=== PATIENT | female | born 1995 | race Caucasian/White ===

== ENCOUNTER 2020-01-20 01:35 | Outpatient (CLI) | payer BC, SELFPAY ==
[2020-01-20 16:37] LABS: Vitamin D 25 Total 25.5 ng/ml (30-100)
[2020-01-20 16:58] LABS: ALT 22 U/L (14-59); AST 12 U/L (15-37); Albumin 4.4 g/dL (3.4-5.0); Alkaline Phosphatase 93 U/L (46-116); Anion Gap 11.7 mmol/L (3-11); BUN 17 mg/dL (7-18); Bilirubin, Total 0.4 mg/dL (0.2-1.0); CO2 24.3 mmol/L (21.0-32.0); CREATININE 0.86 mg/dL (0.55-1.02); Calcium 10.5 mg/dL (8.5-10.1); Calculated LDL 141 mg/dL (<100); Chloride 105 mmol/L (98-107); Cholesterol 222 mg/dL (<200); Glucose 82 mg/dL (74-106); HDL Cholesterol 62 mg/dL (40-60); Potassium 4.1 mmol/L (3.5-5.1); Sodium 141 mmol/L (136-145); TSH (W/Ref FT4) 3.61 uIU/mL (0.36-3.74); Total Protein 7.5 g/dL (6.4-8.2); Triglyceride 95 mg/dL (<150)
== END 2020-01-20 01:55 ==
DX: F32.9 Major depressive disorder, single episode, unspecified (principal); G47.00 Insomnia, unspecified; R63.8 Other symptoms and signs concerning food and fluid intake; Z00.00 Encounter for general adult medical examination without abnormal findings; Z13.220 Encounter for screening for lipoid disorders; E03.9 Hypothyroidism, unspecified; I10 Essential (primary) hypertension
CPT/HCPCS: 36415; 80053; 80061; 82306; 84443

== ENCOUNTER 2020-01-31 13:23 | Outpatient (REF) | payer BC, SELFPAY ==
--- NOTE | 2020-01-31 13:00 | PAPFT_PTH ---
PATIENT: Morenita Carcamo LOC: [facility] U#:[id number] AGE/SX: 24/F ROOM: RE01/31/[address]: KIMBERLY Goddard : 1995 BED: DIS: 01/31/2020 SPEC #: [id number] RECD: 01/31/20 15:29 STATUS: LAURA REGino #: [id number] ABRAN: 01/31/20 13:[address]: Dora Marks DEPT: [facility] Cytology RECD BY: Za Martinez ENTERED: 01/31/20 15:30 SP TYPE: PAPFT OT DR: Aury Lewis APRN Tissues: 1 - CX/ENDOCX FOR PAP SMEARS Procedures: PAP THIN PREP/UVM Screening Comments: [id number]
[2020-02-02 14:28] LABS: Chlamydia Result Negative (Negative); GC Result Negative (Negative)
== END 2020-01-31 13:43 ==
LOC: LBN 13:23
PROVIDERS: Visit Provider Nurse Practitioner Family
DX: Z79.4 Long term (current) use of insulin (principal); Z11.3 Encounter for screening for infections with a predominantly sexual mode of transmission
CPT/HCPCS: 87491; 87591; 88142

== ENCOUNTER 2020-08-23 14:35 | Emergency (ER) | payer BC, SELFPAY ==
[2020-08-23 14:39] VITALS: BP 136/103; PULSE 90; RESP 20; TEMP 36.7; O2SAT 94
--- NOTE | 2020-08-23 15:21 | W.ED.GENAD ---
Discharge Plan Disposition Patient Disposition: HOME Condition: Good Discharge Details Clinical Impression: Lower back pain Primary Care Provider: Aury Lewis ED Provider: Za Baig Home Meds and New Rx's Prescriptions: New cyclobenzaprine 10 mg tablet 10 mg PO TID PRNQty: 14 RF: 0 lidocaine [Lidoderm] 5 % adhesive patch,medicated 1 patch topical DAILY Qty: 15 RF: 0 No Action venlafaxine 37.5 mg capsule,extended release 24hr 37.5 mg PO DAILY Qty: 90 RF: 2 cholecalciferol (vitamin D3) 50 mcg (2,000 unit) capsule 50 mcg PO DAILY Qty: 90 RF: 3 methylprednisolone 4 mg tablets,dose pack See Rx Instructions PO PER PKG DIR RF: 0 Mirena 1 EACH intrauterine device 1 ea Intrauterine ONCE Qty: 1 RF: 0 Discharge Instructions Instructions: Sciatica (ED), Back Pain (ED) Additional Instructions: I recommend stretching your hip several times daily Take 1 g of Tylenol every 8 hours Once the Medrol Dosepak is completed you may take ibuprofen 600 mg every 8 hours with food and alternate with the Tylenol Take the Flexeril for musculoskeletal pain, this will make you drowsy, do not take if you have to drive in 8 hours Lidoderm patches, 12 hours on, 12 hours off Please follow-up with your primary care physician in 2 to 3 days for reevaluation return earlier should you have changes in bowel or bladder, strength or sensation changes, fever or chills, or with any new or worsening complaints recommend outpatient physical therapy at your PCP's discretion Stand Alone Forms: Work Release Discharge Data Discharge Date/Time-TO BE ENTERED AT DEPARTURE: 08/23/20 16:12 Medical Decision Making Patient has no history of IV drug abuse, she is afebrile and nontoxic, my suspicion for discitis or epidural abscess is quite low given her clinical exam picture and findings Suspect she does have sciatica, she has positive straight leg raise with tenderness over sciatic notch Patient is feeling symptomatically improved, she is discharged home in stable condition with stable vitals Medrol Dosepak supplied by another provider No findings consistent with cauda equina syndrome Patient given low threshold to return with new or worsening complaints instructed to follow-up with her primary care physician in 48 hours Differential Diagnosis Differential Diagnosis: Lumbar radiculopathy, sciatica, psoas muscle strain, discitis Medical Records Medical records reviewed: Yes I reviewed the patient's medical records. Lab Data Lab results reviewed: Yes I reviewed the patient's lab results. HPI This 25-year-old female presents with right posterior leg pain. She said the pain for the past 4 days. She states she was seen at [place] several days ago and diagnosed with sciatica and started on Medrol. She states she has been taking the Medrol without relief in her pain. She denies any strength or sensation changes to her extremities. She denies history of IV drug abuse. She states that radiates down her leg. She denies any chance of . She denies any associated abdominal pain. She states the pain is exacerbated with lifting her leg when she is supine. She states the pain radiates from her buttocks into her toes. Denies changes in bowel or bladder, history of IV drug abuse, saddle anesthesia, trauma. She describes it as a sharp shooting pain. She denies having prior history of similar pain. General Date/Time Provider Initiated Documentation: 08/23/20 14:43. Related Data Home Medications Medication Instructions Recorded Confirmed levonorgestrel [Mirena] 1 ea INTRAUTERINE ONCE #1 implant 05/01/17 08/23/20 cholecalciferol (vitamin D3) 50 50 mcg PO DAILY #90 cap 01/24/20 08/23/20 mcg (2,000 unit) capsule venlafaxine 37.5 mg 37.5 mg PO DAILY #90 cap 01/24/20 08/23/20 capsule,extended release 24 hr cyclobenzaprine 10 mg PO TID PRN #14 tab 08/23/20 lidocaine [Lidoderm] 1 patch TOPICAL DAILY #15 ea 08/23/20 methylprednisolone 4 mg tablets in See Rx Instructions PO PER PKG DIR 08/23/20 08/23/20 a dose pack Previous Rx's Medication Instructions Recorded levonorgestrel [Mirena] 1 ea INTRAUTERINE ONCE #1 implant 05/01/17 cholecalciferol (vitamin D3) 50 50 mcg PO DAILY #90 cap 01/24/20 mcg (2,000 unit) capsule venlafaxine 37.5 mg 37.5 mg PO DAILY #90 cap 01/24/20 capsule,extended release 24 hr cyclobenzaprine 10 mg PO TID PRN #14 tab 08/23/20 lidocaine [Lidoderm] 1 patch TOPICAL DAILY #15 ea 08/23/20 Allergies Allergy/AdvReac Type Severity Reaction Status Date / Time amoxicillin Allergy Intermediate Rash Verified 08/23/20 14:44 sertraline AdvReac Severe anxiety Verified 08/23/20 14:44 General Stated Complaint: Nk/Back Pain MAURO: 3 Review of Systems Narrative: Review of systems negative x7 aside from where indicated in HPI [facility] Medical History Closed fracture of phalanx of finger L PINKY Depression facial acne Hearing loss d/t noise Perceived by patient Increased body mass index (BMI) Surgical History GANGLION CYST REMOVAL 12/06/15 [facility] Tooth extraction ORAL SURGERY - WISDOM TOOTH EXTRACTION X 4 Family History Father Diabetes Hyperlipidemia Grandmother Diabetes Breast cancer Grandmother Breast cancer Grandfather Diabetes Grandfather No problems noted. Mother No problems noted. Brother No problems noted. PATERNAL HISTORY Thin blood Social History Smoking/Tobacco Use Status: Current-Occasional Tobacco Type: cigars Quit status: not considering quitting Smoking risk assessment performed?: Yes Alcohol Intake: current Alcohol Intake frequency: a few times a month Alcohol type: wine and hard liquor Drug use: Daily Substance use type: marijuana Counseling given: No Counseling provided: none Caregiver/Support person: No Housing: apartment Do you need help understanding health information?: Rarely Pets and animals: Yes (turtle.fish beta) Pets and animals: cat(s) Sexually active: Yes Do you think of yourself as: straight/heterosexual Current gender identity: female How often do you talk on the phone with friends or family?: three or more times per week How often do you get together with friends or relatives?: once per week How often do you attend yazidism or latter-day services?: decline to answer Panel score (0-1 are the most socially isolated patients): 1 NHANES result reviewed/action taken: No What type of physical activity do you participate in: walking Duration: 45-60 minutes/day Frequency: 3-4 times per week Seatbelt use: sometimes Helmet use: No Drive intox or ride w/intox trailer tank truck driver: No Female Reproductive History Menstrual control method: progestin IUCD Exam Const General: cooperative, well developed and acute distress Orientation: alert and oriented x3 Eyes General: appearance normal, both eyes and all related structures Pupils: PERRL Chest Chest: normal inspection of the chest Resp Effort & Inspection: normal respiratory effort Cardio Rate: regular rate Rhythm: regular rhythm GI Inspection: normal to inspection Course Vital Signs Vital signs: Vital Signs Temperature 36.7 C 08/23/20 14:39 Pulse 90 08/23/20 14:39 Respiratory Rate 20 08/23/20 14:39 Blood Pressure 136/103 H 08/23/20 14:39 Pulse Oximetry 94 08/23/20 14:39 Temperature 36.7 C 08/23/20 14:39 Temperature Source Temporal Artery Scan 08/23/20 14:39 Pulse 90 08/23/20 14:39 Respiratory Rate 20 08/23/20 14:39 Respiratory Effort Non-Labored 08/23/20 14:57 Blood Pressure 136/103 H 08/23/20 14:39 Blood Pressure Position Sitting 08/23/20 14:39 Pulse Oximetry 94 08/23/20 14:39 Oxygen Delivery Method Room Air 08/23/20 14:39 Oxygen Flow Rate 0 08/23/20 14:39 Pain Level 9 08/23/20 14:39
[2020-08-23] MEDS: MORPHine 10 MG/ML VIAL 8 MG IM (15:36)
[2020-08-23] MEDS: Ketorolac 15 MG/ML VIAL IM (15:36)
[2020-08-23] MEDS: Acetaminophen 500 MG TAB 1000 MG PO (15:36)
[2020-08-23] MEDS: Lidocaine 5% Patch 1 PATCH TP (15:37)
== END 2020-08-23 16:12 | disposition home or self-care (01) ==
LOC: ER 16:39
PROVIDERS: Emergency Provider Physician Assistant
DX: M25.551 Pain in right hip (principal); M54.5 Low back pain
CPT/HCPCS: 96372; 99284; 99283; J1885; J2270

== ENCOUNTER 2020-09-05 19:31 | Outpatient (CLI) | payer BC, SELFPAY ==
--- NOTE | 2020-09-05 11:23 | DI.RAD_ITS ---
EXAM: XR HIP RT COMPLETE AP PELVIS INDICATION: low back/sciatica pain, tender SIJ, radiculopathy,m54.5. COMPARISON: No exams were available for comparison TECHNIQUE: 2D digital imaging was performed. FINDINGS: Hip joint spaces are well maintained. No tendon or joint space calcifications are seen. The acetab ular and femoral heads appear normally formed. An IUD is incidentally noted. The SI joints are unre markable. IMPRESSION: Negative pelvis and right hip DATA REPOSITORY: RADIATION DOSE DELIVERED:
== END 2020-09-05 19:32 ==
LOC: DI 09-07 19:32
DX: M54.5 Low back pain (principal); M54.16 Radiculopathy, lumbar region
CPT/HCPCS: 73502

== ENCOUNTER 2022-05-14 18:26 | Emergency (ER) | payer SELFPAY ==
[2022-05-14 18:42] VITALS: BP 120/83; PULSE 110; RESP 24; TEMP 37; O2SAT 98
[2022-05-14] MEDS: Normal Saline 1,000 ML 1000 ML IV (19:43)
[2022-05-14] MEDS: Ketorolac 30 MG/ML VIAL IVP (19:43)
[2022-05-14] MEDS: Ondansetron 4 MG/2 ML VIAL IVP (19:44)
--- NOTE | 2022-05-14 19:45 | DI.CT_ITS ---
Exam(s) CT ABDOMEN PELVIS WO EXAM: CT ABDOMEN PELVIS WO CLINICAL HISTORY: left flank and llq pain. TECHNIQUE: Imaging Protocol: Axial computed tomography images with coronal and sagittal reformatted images were created and reviewed. Oral: no COMPARISON: No exams were available for comparison FINDINGS: ABDOMEN: Lung Bases: Normal where visualized. Liver: Normal density. No measurable mass. Gallbladder and biliary tract: No radiodense calculus or dilation. Pancreas: Normal density, no abnormal calcifications or inflammatory process. Spleen: Normal. Kidneys: Normal size, contour and axis. Mild left hydronephrosis secondary to a 4 by 3 millimeter sto ne at the ureteropelvic junction. Few other tiny nonobstructing stones are noted in the left kidney. One or 2 tiny stones are also noted in the right kidney. No masses seen. Adrenal glands: No masses seen. Lymph nodes: Within normal limits. Abdominal Aorta: Abdominal portion non-dilated. PELVIS: Bladder: Symmetric distention, no gross wall thickening. Bowel: No obstruction or bowel wall thickening. Peritoneal cavity: No ascites, collection or mesenteric inflammatory response. Reproductive organs: IUD Bones: Within normal limits. IMPRESSION: Mild left hydronephrosis secondary to 4 millimeter stone at the ureteropelvic junction. Tiny bilater al nonobstructing renal calculi. RADIATION DOSE DELIVERED: 1,188.85mGy.cm Total DLP DATA REPOSITORY: All CT scans at this facility are submitted to the National Radiology Data Registry (NRDR) Dose Index Registry (DIR) with the [employer] (ACR). RADIATION OPTIMIZATION: All CT scans at this facility use at least one of these dose optimization te chniques: automated exposure control; mA and/or kV adjustment per patient size (includes targeted exa ms where dose is matched to clinical indication); or iterative reconstruction.
[2022-05-14 19:52] LABS: Abs Immature Grans 0.05 10^3/uL (0.0-0.06); Absolute Eosinophil Count 0.01 10^3/uL (0.0-0.7); Absolute Lymphocyte Count 1.92 10^3/uL (1.2-3.4); Absolute Monocyte Count 0.75 10^3/uL (0.1-0.8); Absolute Neutrophil Count 12.01 10^3/uL (1.2-6.7); Basophils % 0.3; Eosinophils % 0.1; HCT 44.2 % (36.0-46.0); HGB 15.5 g/dL (11.2-15.7); Immature Grans % 0.3; MCHC 35.1 % (32.0-36.0); MCV 86 fL (80-95); MPV 9.3 fL (8.0-11.0); Monocytes % 5.1; Neutrophils % 81.2; Platelet Count 370 10^3/uL (130-400); RBC 5.16 10^6/uL (3.93-5.22); RDW 11.7 % (11.7-14.6); RDW-SD 36.9 fL; WBC 14.79 10^3/uL (4.4-10.8)
[2022-05-14 19:53] LABS: Bilirubin Small (Negative); Blood Large (Negative); Clarity Cloudy (Clear); Glucose Negative (Negative); Ketones 15 mg/dL (Negative); Leukocyte Esterase Negative (Negative); Nitrite Negative (Negative); Specific Gravity >= 1.030 (1.005-1.025); Urobilinogen 0.2 EU/dL (Up TO 0.2)
[2022-05-14 19:54] LABS: Absolute Basophil Count 0.04 10^3/uL (0.0-0.2)
[2022-05-14 20:00] LABS: ALT 22 U/L (14-59); AST 15 U/L (15-37); Albumin 4.8 g/dL (3.4-5.0); Alkaline Phosphatase 99 U/L (46-116); Anion Gap 12.6 mmol/L (3-11); BUN 16 mg/dL (7-18); Bilirubin, Total 0.7 mg/dL (0.2-1.0); CO2 23.4 mmol/L (21.0-32.0); CREATININE 1.3 mg/dL (0.55-1.02); Calcium 10.4 mg/dL (8.5-10.1); Chloride 103 mmol/L (98-107); Estimated GFR 58.16 (mL/min/1.73m2); Glucose 103 mg/dL (74-106); Lipase 68 U/L (73-393); Magnesium 1.9 mg/dL (1.8-2.4); Potassium 3.9 mmol/L (3.5-5.1); Sodium 139 mmol/L (136-145); Total Protein 8.7 g/dL (6.4-8.2)
[2022-05-14 20:00] LABS: RBC 20-50 HPF (0-2)
[2022-05-14 20:01] LABS: Bacteria Few HPF (Negative); C & S Indicated? Yes; Casts Negative LPF (Negative); Crystals Negative HPF (Negative); Epithelial Cells Few HPF (Negative); Mucus Moderate (Negative); Other Cells Few Yeast (Negative)
--- NOTE | 2022-05-14 21:01 | DI.VRAD_ITS ---
PROCEDURE INFORMATION: Exam: CT Abdomen And Pelvis Without Contrast Exam date and time: 05/14/2022 8:40 PM Age: 27 years old Clinical indication: Other: Left flank and llq pain TECHNIQUE: Imaging protocol: Computed tomography of the abdomen and pelvis without contrast. Radiation optimization: All CT scans at this facility use at least one of these dose optimization techniques: automated exposure control; mA and/or kV adjustment per patient size (includes targeted exams where dose is matched to clinical indication); or iterative reconstruction. COMPARISON: CR XR HIP RT COMPLETE AP PELVIS 09/05/2020 11:15 AM FINDINGS: Liver: Normal. No mass. Gallbladder and bile ducts: Normal. No calcified stones. No ductal dilation. Pancreas: Normal. No ductal dilation. Spleen: Normal. No splenomegaly. Adrenal glands: Normal. No mass. Kidneys and ureters: Mild left hydronephrosis secondary to a UPJ calculus measuring approximately 4 x 3 mm. Left-sided nephrolithiasis and question faint right-sided nephrocalcinosis Stomach and bowel: Unremarkable. No obstruction. No mucosal thickening. Appendix: No evidence of appendicitis. Intraperitoneal space: Unremarkable. No free air. No significant fluid collection. Vasculature: Unremarkable. No abdominal aortic aneurysm. Lymph nodes: Unremarkable. No enlarged lymph nodes. Urinary bladder: Unremarkable as visualized. Reproductive: Intrauterine device in the uterus Bones/joints: Unremarkable. No acute fracture. Soft tissues: Unremarkable. IMPRESSION: Mild left obstructive uropathy secondary to a 4 x 3 mm left UPJ calculus Left-sided nephrolithiasis and question faint right nephrocalcinosis It due additional nonurgent findings as described Dictated and Authenticated by: Brenden Whaley MD. Ordering:KATE Stubbs MD
--- NOTE | 2022-05-14 21:10 | W.ED.GENAD ---
Discharge Plan Disposition Patient Disposition: HOME Condition: Stable Discharge Details Clinical Impression: Left ureteral calculus Primary Care Provider: Unknown,Unknown ED Provider: Enoc West Home Meds and New Rx's Prescriptions: New tamsulosin [Flomax] 0.4 mg capsule 0.4 mg PO QHS Qty: 14 0RF ibuprofen [IBU] 600 mg tablet 600 mg PO QID PRN (Reason: pain) Qty: 20 0RF Continued venlafaxine 37.5 mg capsule,extended release 24hr 37.5 mg PO DAILY Qty: 90 2RF cholecalciferol (vitamin D3) 50 mcg (2,000 unit) capsule 50 mcg PO DAILY Qty: 90 3RF Mirena 1 EACH intrauterine device 1 ea Intrauterine ONCE Qty: 1 0RF lidocaine [Lidoderm] 5 % adhesive patch,medicated 1 patch topical DAILY Qty: 15 0RF Rx Instructions: leave on most painful area for up to 12 hrs Discharge Instructions Instructions: Kidney Stones (ED), How to Strain Your Urine (ED) Additional Instructions: If you develop any fever chills, severe worsening of symptoms, or urinary tract infectious symptoms please return immediately to the emergency department for reassessment. Otherwise stay well-hydrated, strain your urine, and follow-up with urology as directed by their office. Referrals: [facility] [Provider Group] (Call the office tomorrow for arrangement of follow-up appointment) Discharge Data Discharge Date/Time-TO BE ENTERED AT DEPARTURE: 05/14/22 21:41 Medical Decision Making Patient presenting to the emergency department for chief complaint of severe left flank pain. She states that this started around noon today and acutely worsened as the day went on. Patient states some radiating of pain from left flank into her abdomen. She does state history of lumbar back pain but states this is significantly higher. She does state some associated nausea secondary to pain along with hot flashes again associated with painful episodes. Patient denies any fever chills, urinary or vaginal symptoms. Physical exam shows mild left CVA tenderness with tenderness to palpation of left lower quadrant. Exam is otherwise unremarkable. We will plan on checking labs, urinalysis, and CT imaging for concern of kidney stone. Pending results will give fluids and Zofran along with ketorolac. Review of labs show mildly elevated WBC of 14.79 otherwise no shift, CMP with anion gap of 12.6 and creatinine of 1.3 with calcium of 10.4 otherwise negative lipase, urinalysis does show high specific gravity, proteins ketones and blood noted in urine. CT imaging shows a 4 x 3 mm left ureteral stone. No other emergent findings were noted. Discussed findings with patient and will place patient on urology follow-up. We will give her Flomax and limited amount of narcotics for severe pain otherwise patient encouraged to continue to use NSAIDs and stay hydrated. After discussion of diagnosis and plan of care patient has no further needs, questions, or concerns and states clear understanding to return to the emergency department for any worsening symptoms. this documentation was generated using [employer] system, please disregard any oddities of phrase or misspellings. Imaging Data Radiologic Study: Attestation: I personally reviewed and interpreted this imaging study as follows: Imaging: CT Scan Radiologist's impression: FINDINGS: Liver: Normal. No mass. Gallbladder and bile ducts: Normal. No calcified stones. No ductal dilation. Pancreas: Normal. No ductal dilation. Spleen: Normal. No splenomegaly. Adrenal glands: Normal. No mass. Kidneys and ureters: Mild left hydronephrosis secondary to a UPJ calculus measuring approximately 4 x 3 mm. Left-sided nephrolithiasis and question faint right-sided nephrocalcinosis Stomach and bowel: Unremarkable. No obstruction. No mucosal thickening. Appendix: No evidence of appendicitis. Intraperitoneal space: Unremarkable. No free air. No significant fluid collection. Vasculature: Unremarkable. No abdominal aortic aneurysm. Lymph nodes: Unremarkable. No enlarged lymph nodes. Urinary bladder: Unremarkable as visualized. Reproductive: Intrauterine device in the uterus Bones/joints: Unremarkable. No acute fracture. Soft tissues: Unremarkable. IMPRESSION: Mild left obstructive uropathy secondary to a 4 x 3 mm left UPJ calculus Left-sided nephrolithiasis and question faint right nephrocalcinosis It due additional nonurgent findings as described HPI General Mode of arrival: ambulatory. Date/Time Provider Initiated Documentation: 05/14/22 18:44. Information obtained by: patient and RN notes reviewed. History of Present Illness 27 year old F presents to the emergency department with the chief complaint of Left flank pain, described as moderate, with intensity rated at 8. Quality is described as sharp, and is localized to the back and left. Patient abdomen. Patient started experiencing this hour(s) (7) and it has been constant. No relieving factors improve symptom(s), No exacerbating factors reported . Patient notes loss of appetite and nausea/vomiting. Related Data Home Medications Medication Instructions Recorded Confirmed levonorgestrel 20 mcg/24 hours (8 1 ea intrauterine ONCE #1 implant 05/01/17 09/05/20 yrs) 52 mg intrauterine device (Mirena) cholecalciferol (vitamin D3) 50 50 mcg PO DAILY #90 caps 01/24/20 09/05/20 mcg (2,000 unit) capsule venlafaxine 37.5 mg 37.5 mg PO DAILY #90 caps 01/24/20 09/05/20 capsule,extended release 24 hr lidocaine 5 % topical patch 1 patch topical DAILY #15 ea 08/23/20 09/05/20 (Lidoderm) ibuprofen 600 mg tablet (IBU) 600 mg PO QID PRN pain #20 tabs 05/14/22 tamsulosin 0.4 mg capsule (Flomax) 0.4 mg PO QHS #14 caps 05/14/22 Previous Rx's Medication Instructions Recorded levonorgestrel 20 mcg/24 hours (8 1 ea intrauterine ONCE #1 implant 05/01/17 yrs) 52 mg intrauterine device (Mirena) cholecalciferol (vitamin D3) 50 50 mcg PO DAILY #90 caps 01/24/20 mcg (2,000 unit) capsule venlafaxine 37.5 mg 37.5 mg PO DAILY #90 caps 01/24/20 capsule,extended release 24 hr lidocaine 5 % topical patch 1 patch topical DAILY #15 ea 08/23/20 (Lidoderm) ibuprofen 600 mg tablet (IBU) 600 mg PO QID PRN pain #20 tabs 05/14/22 tamsulosin 0.4 mg capsule (Flomax) 0.4 mg PO QHS #14 caps 05/14/22 Allergies Allergy/AdvReac Type Severity Reaction Status Date / Time amoxicillin Allergy Intermediate Rash Verified 09/05/20 09:48 sertraline AdvReac Severe anxiety Verified 09/05/20 09:48 General Stated Complaint: Abd Prob MAURO: 3 Review of Systems Constitutional Constitutional: Denies chills, Denies fever(s) and Reports poor appetite Cardiovascular Cardiovascular: Denies chest pain and Denies dyspnea Respiratory Respiratory: Denies cough and Denies dyspnea Gastrointestinal Gastrointestinal: Reports as per HPI, Reports abdominal pain, Denies melena, Denies change in bowel habits, Denies constipation, Denies diarrhea, Reports nausea and Reports vomiting Genitourinary Genitourinary: Denies hematuria, Denies dysuria, Reports flank pain, Denies urinary incontinence, Denies urinary hesitancy and Denies urinary urgency Integumentary/Breasts Skin/Breast: Denies rash PFSH All Active Problems (Updated 05/14/22 @ 21:15 by Enoc West NP) Left ureteral calculus (Acute) Lower back pain (Acute) Encounter for annual physical exam (Acute) IUD surveillance (Acute) Migraine (Acute 04/18/17) Increased body mass index (BMI) (Acute) Depression (Chronic) Hearing loss d/t noise (Acute) Perceived by patient Medical History Closed fracture of phalanx of finger L PINKY Depression facial acne Hearing loss d/t noise Perceived by patient Increased body mass index (BMI) Surgical History GANGLION CYST REMOVAL 12/06/15 [facility] Tooth extraction ORAL SURGERY - WISDOM TOOTH EXTRACTION X 4 Family History Father Diabetes Hyperlipidemia Grandmother Diabetes Breast cancer Grandmother Breast cancer Grandfather Diabetes Grandfather No problems noted. Mother No problems noted. Brother No problems noted. PATERNAL HISTORY Thin blood Social History Smoking/Tobacco Use Status: Current-Occasional Tobacco Type: cigars Quit status: not considering quitting Smoking risk assessment performed?: Yes Alcohol Intake: current Alcohol Intake frequency: a few times a month Alcohol type: wine and hard liquor Drug use: Daily Substance use type: marijuana Counseling given: No Counseling provided: none Caregiver/Support person: No Housing: apartment Do you need help understanding health information?: Rarely Pets and animals: Yes (turtle.fish beta) Pets and animals: cat(s) Sexually active: Yes Do you think of yourself as: straight/heterosexual Current gender identity: female How often do you talk on the phone with friends or family?: three or more times per week How often do you get together with friends or relatives?: once per week How often do you attend congregational or sikhism services?: decline to answer Panel score (0-1 are the most socially isolated patients): 1 NHANES result reviewed/action taken: No What type of physical activity do you participate in: walking Duration: 45-60 minutes/day Frequency: 3-4 times per week Seatbelt use: sometimes Helmet use: No Drive intox or ride w/intox driver service technician: No Do you feel safe at home: Yes Do you feel safe in your relationship?: Yes Female Reproductive History Menstrual control method: progestin IUCD Exam Const General: cooperative Orientation: alert, awake and oriented x3 Resp Effort & Inspection: normal respiratory effort and able to speak in complete sentences Auscultation: clear to auscultation bilaterally Cardio Rate: regular rate Rhythm: regular rhythm Heart Sounds: S1 normal and S2 normal GI Inspection: normal to inspection Palpation: soft, no hepatosplenomegaly, not firm, no guarding, no masses, no pulsatile masses, not rigid, no splenomegaly and tender in the LLQ Auscultation: normal bowel sounds General: CVA tenderness on the left Back/Spine/Pelvis Back: CVA tenderness (Left) Neuro General: patient alert, patient awake, patient oriented x3, gait normal and moves all extremities Course Vital Signs Vital signs: Vital Signs Temperature 37.0 C 05/14/22 18:42 Pulse 110 H 05/14/22 18:42 Respiratory Rate 24 05/14/22 18:42 Blood Pressure 120/83 05/14/22 18:42 Pulse Oximetry 98 05/14/22 18:42 Temperature 37.0 C 05/14/22 18:42 Temperature Source Temporal Artery Scan 05/14/22 18:42 Pulse 110 H 05/14/22 18:42 Respiratory Rate 24 05/14/22 18:42 Respiratory Effort 05/14/22 19:33 Blood Pressure 120/83 05/14/22 18:42 Blood Pressure Position Sitting 05/14/22 18:42 Pulse Oximetry 98 05/14/22 18:42 Oxygen Delivery Method Room Air 05/14/22 18:42 Oxygen Flow Rate 0 05/14/22 18:42 Pain Level 8 05/14/22 18:42 Lab/Test Results Lab/Test Results: 05/14/22 19:28 Urine - Reflex from Ua Urine Culture - Pending Laboratory Tests Range/Units 05/14/22 05/14/22 05/14/22 19:28 19:39 19:39 WBC (4.4-10.8) 10^3/uL 14.79 H RBC (3.93-5.22) 10^6/uL 5.16 Hgb (11.2-15.7) g/dL 15.5 Hct (36.0-46.0) % 44.2 MCV (80-95) fL 86 MCH (27.0-33.0) pg 30.0 MCHC (32.0-36.0) % 35.1 RDW (11.7-14.6) % 11.7 Plt Count (130-400) 10^3/uL 370 MPV (8.0-11.0) fL 9.3 Immature Gran % 0.3 Neutrophils % 81.2 Lymphocytes % 13.0 Monocytes % 5.1 Eosinophils % 0.1 Basophils % 0.3 Nucleated RBC % (0.0-0.3) % 0.0 Absolute Neutrophils (1.2-6.7) 10^3/uL 12.01 H Absolute Lymphocytes (1.2-3.4) 10^3/uL 1.92 Absolute Monocytes (0.1-0.8) 10^3/uL 0.75 Absolute Eosinophils (0.0-0.7) 10^3/uL 0.01 Absolute Basophils (0.0-0.2) 10^3/uL 0.04 Sodium (136-145) mmol/L 139 Potassium (3.5-5.1) mmol/L 3.9 Chloride (98-107) mmol/L 103 Carbon Dioxide (21.0-32.0) mmol/L 23.4 Anion Gap (3-11) mmol/L 12.6 H BUN (7-18) mg/dL 16 Creatinine (0.55-1.02) mg/dL 1.3 H Est GFR (CKD-EPI 2020) (mL/min/1.73m2) 58.16 Glucose (74-106) mg/dL 103 Calcium (8.5-10.1) mg/dL 10.4 H Magnesium (1.8-2.4) mg/dL 1.9 Total Bilirubin (0.2-1.0) mg/dL 0.7 AST (15-37) U/L 15 ALT (14-59) U/L 22 Alkaline Phosphatase (46-116) U/L 99 Total Protein (6.4-8.2) g/dL 8.7 H Albumin (3.4-5.0) g/dL 4.8 Lipase (73-393) U/L 68 Urine Color (Yellow) Yellow Urine Clarity (Clear) Cloudy Urine pH (5-8) 6.0 Ur Specific [place] (1.005-1.025) >= 1.030 H Urine Protein (Negative) mg/dL 100 H Urine Ketones (Negative) mg/dL 15 H Urine Blood (Negative) Large H Urine Nitrite (Negative) Negative Urine Bilirubin (Negative) Small H Urine Urobilinogen (Up TO 0.2) EU/dL 0.2 Ur Leukocyte Esterase (Negative) Negative Urine RBC (0-2) HPF 20-50 H Urine WBC (0-5) HPF 3-5 Ur Epithelial Cells (Negative) HPF Few Urine Crystals (Negative) HPF Negative Urine Bacteria (Negative) HPF Few Urine Casts (Negative) LPF Negative Urine Mucus (Negative) Moderate Urine Other (Negative) Few Yeast Ur Culture Indicated? Yes Urine Glucose (Negative) mg/dL Negative POC- Test(urine) Negative
[2022-05-14] MEDS: Tamsulosin 0.4 MG CAPCR PO (21:36)
--- NOTE | 2022-05-14 21:47 | NUR.NOTE ---
Urology referral sent for pt to be seen in 1-2 weeks for left ureteral stone -ED-Jose Nursing Note:
== END 2022-05-14 21:41 | disposition home or self-care (01) ==
PROVIDERS: Emergency Provider Nurse Practitioner Family
DX: N20.1 Calculus of ureter (principal); Z32.02 Encounter for pregnancy test, result negative
CPT/HCPCS: 80053; 83690; 96361; 96374; 96375; 99284; 74176; 81003; 81015; 83735; 85025; 87086; J1885; J2405